=== PATIENT | female | born 1975 | race Native Hawaiian/Other Pacific Islander ===

== ENCOUNTER 2018-03-31 22:35 | Inpatient (IN) | payer BC, MEDICARE ==
[2018-03-31] MEDS ORDERED: ONDANSETRON 4 MG/2 ML VIAL IVP PRN (22:54)
[2018-03-31] MEDS ORDERED: NALOXONE 0.4 MG/ML 1 ML VIAL IV PRN (22:54)
--- NOTE | 2018-03-31 23:02 | ED ---
General Adult HPI - General Chief complaint: Recheck/Abnormal Lab/Rx Stated complaint: renal failure Time Seen by Provider: 03/31/18 22:38 Source: patient, RN notes reviewed, old records reviewed Mode of arrival: EMS Limitations: no limitations - History of Present Illness Initial comments: 42-year-old female presenting as transfer from outside hospital with nausea vomiting and acute renal failure. Patient was found to have a creatinine of 4.2. She was transferred for further evaluation and treatment. Patient states that over the past 5-6 days she has had significant nausea and vomiting. She did develop diarrhea yesterday however this has resolved. Her vomiting had improved today however she was very weak and lightheaded. She had been unable to eat much over the past one week. She states she had similar episode of this several months ago and no definitive diagnosis was made. At the time my evaluation, she is feeling much better. No nausea or vomiting. No pain. - Related Data Home Medications Medication Instructions Recorded Confirmed ALPRAZolam [Xanax] 1 mg PO Q6HR PRN 06/18/14 03/31/18 Levothyroxine Sodium [Synthroid] 125 mcg PO HS 06/18/14 03/31/18 PARoxetine HCL [Paxil] 30 mg PO HS 06/18/14 03/31/18 carBAMazepine [TEGretol] 200 mg PO HS 06/18/14 03/31/18 Glimepiride [Amaryl] 4 mg PO [id number] 03/31/18 03/31/18 Lisinopril [Zestril] 10 mg PO DAILY 03/31/18 03/31/18 Pravastatin Sodium [Pravachol] 10 mg PO DAILY 03/31/18 03/31/18 Allergies Allergy/AdvReac Type Severity Reaction Status Date / Time divalproex sodium Allergy Nausea & Verified 03/31/18 22:41 [From Depakote] Vomiting & Diarrhea pertussis vaccine,fluid Allergy Nausea & Verified 03/31/18 22:41 Vomiting & Diarrhea Review of Systems ROS Statement: Those systems with pertinent positive or pertinent negative responses have been documented in the HPI. ROS Other: All systems not noted in ROS Statement are negative. Past Medical History Past Medical History: Diabetes Mellitus, Hypertension, Thyroid Disorder Additional Past Medical History / Comment(s): PREVIOUSLY ON HTN MEDS, NO LONGER PRESCRIBED ANY, tremors History of Any Multi-Drug Resistant Organisms: MRSA Date of last positivie culture/infection: 2007 MDRO Source:: UNDER ARM AND GROIN Past Surgical History: Tubal Ligation Additional Past Surgical History / Comment(s): I&D MRSA-UNDER ARM AND GROIN Past Anesthesia/Blood Transfusion Reactions: No Reported Reaction Past Psychological History: Anxiety, Bipolar, Depression Smoking Status: Current every day smoker Past Alcohol Use History: Rare Past Drug Use History: Marijuana - Past Family History Mother Family Medical History: Cancer General Exam Limitations: no limitations General appearance: alert, in no apparent distress Head exam: Present: atraumatic, normocephalic Eye exam: Present: normal appearance, PERRL, EOMI ENT exam: Present: mucous membranes dry Neck exam: Present: normal inspection. Absent: tenderness, meningismus Respiratory exam: Present: normal lung sounds bilaterally. Absent: respiratory distress, wheezes Cardiovascular Exam: Present: regular rate, normal rhythm GI/Abdominal exam: Present: soft. Absent: distended, tenderness, guarding, rebound Extremities exam: Present: normal inspection Back exam: Present: normal inspection. Absent: full ROM, tenderness Neurological exam: Present: alert, oriented X3, CN II-XII intact. Absent: motor sensory deficit Psychiatric exam: Present: normal affect, normal mood Skin exam: Present: warm, dry, intact. Absent: cyanosis, diaphoretic Course Vital Signs 03/31/18 22:37 Temperature 97.9 F Pulse Rate 66 Respiratory 20 Rate Blood Pressure 143/84 O2 Sat by Pulse 97 Oximetry Medical Decision Making - Medical Decision Making Patient transferred for evaluation of acute kidney injury secondary dehydration and nausea and vomiting. Patient's feeling much better at the time my evaluation. Laboratory studies reviewed, she did have a normal white blood cell count at 9.8, hemoglobin was stable 13.8, sodium 134, mild anion gap metabolic acidosis at 18, creatinine was 4.2, no history of previous kidney issues. Glucose elevated at 203. AST and ALT were normal, total bili normal, lipase was normal. Patient was given 2 L normal saline. She will be continued on IV hydration. She will be given symptomatic treatment for nausea vomiting. If patient's symptoms persist she may require GI consultation. Likely her acute renal failure is secondary to dehydration. If laboratory studies do not improve with IV hydration, she may require nephrology consult. Patient admitted for continued IV hydration and reevaluation. Disposition Clinical Impression: Acute kidney injury, Dehydration, Nausea & vomiting Disposition: ADMITTED IP TO THIS HOSP Condition: Stable Is patient prescribed a controlled substance at d/c from ED?: No Referrals: Felicia Reynoso MD [Primary Care Provider] - 1-2 days Decision to Admit Reason: Admit from EC Decision Date: 03/31/18 Decision Time: 23:02
[2018-04-01 06:58] LABS: Basophils % (A) 1 %; Eosinophils # (A) 0.1 k/uL (0-0.7); Eosinophils % (A) 2 %; HCT 35.8 % (34.0-46.0); HGB 12.1 gm/dL (11.4-16.0); Lymphocytes % (A) 29 %; MCH 31.5 pg (25.0-35.0); MCHC 33.6 g/dL (31.0-37.0); MCV 93.5 fL (80.0-100.0); Mean Platelet Volume 6.4; Monocytes # (A) 0.5 k/uL (0-1.0); Monocytes % (A) 6 %; Neutrophils # (A) 4.3 k/uL (1.3-7.7); Neutrophils % (A) 60 %; Platelet Count 314 k/uL (150-450); RBC 3.83 m/uL (3.80-5.40); RDW 14.6 % (11.5-15.5); WBC 7.1 k/uL (3.8-10.6)
[2018-04-01 07:01] LABS: Glucose,Whole Blood 83 mg/dL (75-99)
[2018-04-01 07:13] LABS: Albumin 3.7 g/dL (3.5-5.0); Calcium 8.8 mg/dL (8.4-10.2); Potassium 3.7 mmol/L (3.5-5.1); Total Bilirubin 0.4 mg/dL (0.2-1.3); Total Protein 6.3 g/dL (6.3-8.2)
[2018-04-01] MEDS: SODIUM CHLORIDE 0.9% 1,000 ML IV SCH ×3 (07:54→15:23)
[2018-04-01] MEDS: PANTOPRAZOLE 40 MG/10 ML VIAL IV SCH (07:54)
[2018-04-01 11:59] LABS: Glucose,Whole Blood 154 mg/dL (75-99)
[2018-04-01 17:04] LABS: Glucose,Whole Blood 141 mg/dL (75-99)
[2018-04-01 20:48] LABS: Glucose,Whole Blood 172 mg/dL (75-99)
[2018-04-01] MEDS: PARoxetine 10 MG TAB PO SCH (20:57)
[2018-04-01] MEDS: PRAVASTATIN SODIUM 20 MG TAB PO SCH (20:57)
[2018-04-01] MEDS: LEVOTHYROXINE 125 MCG TAB PO SCH (20:57)
[2018-04-01] MEDS: carBAMazepine 200 MG TAB PO SCH (20:58)
[2018-04-01] MEDS: ACETAMINOPHEN TAB 325 MG TAB PO PRN (21:02)
[2018-04-01] MEDS: ALPRAZolam 1 MG TAB PO PRN (21:07)
--- NOTE | 2018-04-01 23:45 | P.HPIM ---
History of Present Illness H&P Date: 04/01/18 Chief Complaint: Nausea and vomiting Patient is a 42-year-old female with a known history of diabetes type 2, hypertension and hypothyroidism presented to outside hospital with complaints of nausea vomiting for the past 1 week. Patient was found to have acute kidney injury with creatinine level IV.2 and was transferred to [facility] for further evaluation. Patient has been having nausea and vomiting" diarrhea yesterday which has since been resolved now. Patient felt very weak and lightheaded. Patient is not able to tolerate oral diet for the past 1 week. Patient had similar symptoms about a month back. Denied any history of endoscopy in the past. Currently patient is still nauseated and denied any abdominal pain. No fever no chills. Lipase 542. urinalysis was ordered. Laboratory data from outside hospital was reviewed. Review of Systems Constitutional: Patient denies any fever or chills . Patient does have generalized weakness and malaise. Abdomen: Patient does have nausea and vomiting and diarrhea. No abdominal pain Cardiovascular: Patient denies any chest pain or short of breath no palpitations. Respiratory: patient denied any cough is from production. No shortness of breath Neurologic: Patient denied any numbness or tingling headache. Musculoskeletal: Patient denies any complaints of joint swelling or deformity. Skin: Negative Psychiatric: Negative Endocrine: No heat or cold intolerance. No recent weight gain. Genitourinary: No dysuria or hematuria. All other 14 point ROS negative except the above Past Medical History Past Medical History: Diabetes Mellitus, Hypertension, Thyroid Disorder Additional Past Medical History / Comment(s): PREVIOUSLY ON HTN MEDS, NO LONGER PRESCRIBED ANY, tremors History of Any Multi-Drug Resistant Organisms: MRSA Date of last positivie culture/infection: 2007 MDRO Source:: UNDER ARM AND GROIN Past Surgical History: Tubal Ligation Additional Past Surgical History / Comment(s): I&D MRSA-UNDER ARM AND GROIN Past Anesthesia/Blood Transfusion Reactions: No Reported Reaction Smoking Status: Current every day smoker - Past Family History Mother Family Medical History: Cancer Additional Family Medical History / Comment(s): breast cancer Father Family Medical History: Diabetes Mellitus, Hypertension Additional Family Medical History / Comment(s): heart valve replaced, tremors Sister(s) Family Medical History: No Reported History Son(s) Family Medical History: No Reported History Medications and Allergies Home Medications Medication Instructions Recorded Confirmed Type ALPRAZolam [Xanax] 1 mg PO Q6HR PRN 06/18/14 04/01/18 History Levothyroxine Sodium [Synthroid] 125 mcg PO HS 06/18/14 04/01/18 History PARoxetine HCL [Paxil] 30 mg PO HS 06/18/14 04/01/18 History carBAMazepine [TEGretol] 100 mg PO HS 06/18/14 04/01/18 History Glimepiride [Amaryl] 4 mg PO HS 03/31/18 04/01/18 History Lisinopril [Zestril] 10 mg PO HS 03/31/18 04/01/18 History Pravastatin Sodium [Pravachol] 40 mg PO HS 04/01/18 04/01/18 History metFORMIN HCL 1,000 mg PO HS 04/01/18 04/01/18 History Allergies Allergy/AdvReac Type Severity Reaction Status Date / Time divalproex sodium AdvReac Nausea & Verified 04/01/18 12:29 [From Depakote] Vomiting & Diarrhea pertussis vaccine,fluid AdvReac Nausea & Verified 04/01/18 12:29 Vomiting & Diarrhea Physical Exam Vitals: Vital Signs Temp Pulse Pulse Pulse Resp BP BP 04/01/18 09:42 97.0 F L 66 16 136/73 04/01/18 08:00 97.7 F 62 16 142/83 04/01/18 04:26 84/50 04/01/18 03:10 18 04/01/18 00:00 97.6 F 70 18 173/87 03/31/18 22:37 97.9 F 66 20 143/84 Pulse Ox 04/01/18 09:42 96 04/01/18 08:00 99 04/01/18 04:26 04/01/18 03:10 04/01/18 00:00 99 03/31/18 22:37 97 Intake and Output 03/31/18 04/01/18 04/01/18 22:59 06:59 14:59 Intake Total 560 Balance 560 Intake: Oral 560 Other: Voiding Method Toilet Toilet Weight 73.482 kg PHYSICAL EXAMINATION: Patient is lying in the bed comfortably, no acute distress, awake alert and oriented. Slightly lethargic. HEENT: Normocephalic. Neck is supple. Pupils reactive. Nostrils clear. Oral cavity is moist. Ears reveal no drainage. Neck reveals no JVD, carotid bruits, or thyromegaly. CHEST EXAMINATION: Trachea is central. Symmetrical expansion. Lung bowman clear to auscultation and percussion. CARDIAC: Normal S1, S2 with no gallops. No murmurs ABDOMEN: Soft. Bowel sounds normal. No organomegaly. No abdominal bruits. Extremities: reveal no edema. No clubbing or cyanosis Neurologically awake, alert, oriented x3 with well-coordinated movements. No focal deficits noted Skin: No rash or skin lesions. Psychiatric: Coperative. Nonsuicidal Musculoskeletal: No joint swelling or deformity. Normal range of motion. Results CBC & Chem 7: 04/01/18 06:29 04/01/18 06:29 Labs: Abnormal Lab Results - Last 24 Hours (Table) 04/01/18 04/01/18 Range/Units 06:29 11:57 BUN 47 H (7-17) mg/dL Creatinine 1.67 H (0.52-1.04) mg/dL POC Glucose (mg/dL) 154 H (75-99) mg/dL AST 13 L (14-36) U/L Lipase 542 H (23-300) U/L Thrombosis Risk Factor Assmnt - DVT/VTE Prophylaxis DVT/VTE Prophylaxis: Pharmacologic Prophylaxis ordered - Choose All That Apply Any of the Below Risk Factors Present?: Yes Each Factor Represents 1 point: Age 41-60 years, Obesity (BMI >25) Other Risk Factors: No Other congenital or acquired thrombophilia - If yes, enter type in comment: No Thrombosis Risk Factor Assessment Total Risk Factor Score: 2 Thrombosis Risk Factor Assessment Level: Low Risk Assessment and Plan Assessment: Intractable nausea and vomiting possible gastritis Mild pancreatitis with elevated lipase level likely due to above Acute kidney injury with creatinine level 4.2. Likely prerenal. Improving to 1.67 Hypertension fairly controlled Diabetes type 2 [id number] Hypothyroidism Currently every day smoker Plan: Patient will be continued aggressive hydration and symptomatic management for nausea and vomiting. Patient will be started on clear liquids and advance as tolerated. Continue with the PPI IV. Follow closely and further recommendations based on the clinical course. Smoking cessation has been counseled extensively. Time with Patient: Greater than 30
[2018-04-02] MEDS: SODIUM CHLORIDE 0.9% 1,000 ML IV SCH ×4 (00:12→13:12)
[2018-04-02 07:22] LABS: Glucose,Whole Blood 97 mg/dL (75-99)
[2018-04-02] MEDS: GLIMEPIRIDE 4 MG TAB PO SCH (07:43)
[2018-04-02] MEDS: PANTOPRAZOLE 40 MG/10 ML VIAL IV SCH (09:05)
[2018-04-02 09:10] LABS: Appearance,Urine Clear (Clear); Bilirubin,Urine Negative (Negative); Blood,Urine Large (Negative); Color,Urine Yellow; Glucose,Urine (UA) Negative (Negative); Hyaline Casts,Urine 1 /lpf (0-2); Ketones,Urine Negative (Negative); Leukocyte Esterase,Urine Negative (Negative); Mucus,Urine Rare /hpf; Nitrite,Urine Negative (Negative); PH, Urine 5.5 (5.0-8.0); Protein,Urine Negative (Negative); RBC,Urine >182 /hpf (0-5); Specific Gravity,Urine 1.013 (1.001-1.035); Squamous Epithelial Cell,Urine 1 /hpf (0-4); Urobilinogen,Urine <2.0 mg/dL (<2.0); WBC,Urine 9 /hpf (0-5)
[2018-04-02 10:08] LABS: Basophils # (A) 0.1 k/uL (0-0.2); Basophils % (A) 1 %; Eosinophils # (A) 0.2 k/uL (0-0.7); Eosinophils % (A) 2 %; HCT 34.3 % (34.0-46.0); HGB 11.2 gm/dL (11.4-16.0); Lymphocytes # (A) 1.6 k/uL (1.0-4.8); Lymphocytes % (A) 14 %; MCH 30.8 pg (25.0-35.0); MCHC 32.6 g/dL (31.0-37.0); MCV 94.3 fL (80.0-100.0); Mean Platelet Volume 6.8; Monocytes # (A) 0.5 k/uL (0-1.0); Monocytes % (A) 4 %; Neutrophils # (A) 8.8 k/uL (1.3-7.7); Neutrophils % (A) 78 %; Platelet Count 299 k/uL (150-450); RBC 3.63 m/uL (3.80-5.40); RDW 13.8 % (11.5-15.5); WBC 11.2 k/uL (3.8-10.6)
[2018-04-02 10:26] LABS: Anion Gap 12 mmol/L; Blood Urea Nitrogen 15 mg/dL (7-17); Calcium 8.4 mg/dL (8.4-10.2); Carbon Dioxide 20 mmol/L (22-30); Chloride 106 mmol/L (98-107); Glucose 250 mg/dL (74-99); Potassium 3.6 mmol/L (3.5-5.1); Sodium 138 mmol/L (137-145)
[2018-04-02 12:04] LABS: Hemoglobin A1C 7.6 % (4.0-6.0)
[2018-04-02 12:07] LABS: Glucose,Whole Blood 188 mg/dL (75-99)
[2018-04-02 14:13] VITALS: BMI 27.8
[2018-04-02 17:19] LABS: Glucose,Whole Blood 144 mg/dL (75-99)
[2018-04-02 21:28] LABS: Glucose,Whole Blood 223 mg/dL (75-99)
[2018-04-02] MEDS: PARoxetine 10 MG TAB PO SCH (21:37)
[2018-04-02] MEDS: carBAMazepine 200 MG TAB PO SCH (21:37)
[2018-04-02] MEDS: ALPRAZolam 1 MG TAB PO PRN (21:37)
[2018-04-02] MEDS: PRAVASTATIN SODIUM 20 MG TAB PO SCH (21:37)
[2018-04-02] MEDS: ACETAMINOPHEN TAB 325 MG TAB PO PRN (21:37)
[2018-04-02] MEDS: LEVOTHYROXINE 125 MCG TAB PO SCH (21:38)
--- NOTE | 2018-04-03 01:17 | P.PN ---
Subjective Progress Note Date: 04/02/18 Principal diagnosis: Acute gastroenteritis Patient is a 42-year-old female with a known history of diabetes type 2, hypertension and hypothyroidism presented to outside hospital with complaints of nausea vomiting for the past 1 week. Patient was found to have acute kidney injury with creatinine level IV.2 and was transferred to [facility] for further evaluation. Patient has been having nausea and vomiting" diarrhea yesterday which has since been resolved now. Patient felt very weak and lightheaded. Patient is not able to tolerate oral diet for the past 1 week. Patient had similar symptoms about a month back. Denied any history of endoscopy in the past. Currently patient is still nauseated and denied any abdominal pain. No fever no chills. Lipase 542. urinalysis was ordered. Laboratory data from outside hospital was reviewed. 04/02/2018 Patient says that she did have 1 episode of diarrhea this morning. No complaints of fever or chills. Patient does have lower abdominal pain with cramps. Still nauseated but tolerating liquid diet. No chest pain or shortness of breath. Renal function improved otherwise. WBC count increased to 11.2 All other review of systems negative except the above Current medications reviewed Objective - Vital Signs Vital signs: Vital Signs Temp 98.5 F 04/02/18 14:17 Pulse 71 04/02/18 14:17 Resp 17 04/02/18 14:17 BP 144/81 04/02/18 14:17 Pulse Ox 100 04/02/18 14:17 Intake & Output 04/02/18 04/02/18 04/03/18 06:59 18:59 06:59 Intake Total 300 1080 Balance 300 1080 Weight 73.482 kg Intake: IV 640 Sodium Chloride 0.9% 1, 640 000 ml @ 80 mls/hr IV . [id number] [facility] Rx#:[id number] Oral 300 440 Other: # Voids 0 # Bowel Movements 0 - Exam PHYSICAL EXAMINATION: Patient is lying in the bed comfortably, no acute distress, awake alert and oriented.. HEENT: Normocephalic. Neck is supple. Pupils reactive. Nostrils clear. Oral cavity is moist. Ears reveal no drainage. Neck reveals no JVD, carotid bruits, or thyromegaly. CHEST EXAMINATION: Trachea is central. Symmetrical expansion. Lung bowman clear to auscultation and percussion. CARDIAC: Normal S1, S2 with no gallops. No murmurs ABDOMEN: Soft. Bowel sounds normal. No organomegaly. No abdominal bruits. Extremities: reveal no edema. No clubbing or cyanosis Neurologically awake, alert, oriented x3 with well-coordinated movements. No focal deficits noted Skin: No rash or skin lesions. Psychiatric: Coperative. Nonsuicidal Musculoskeletal: No joint swelling or deformity. Normal range of motion. - Labs CBC & Chem 7: 04/02/18 09:52 04/02/18 09:52 Labs: Abnormal Lab Results - Last 24 Hours (Table) 04/01/18 04/02/18 04/02/18 Range/Units 06:29 07:30 09:52 WBC 11.2 H (3.8-10.6) k/uL RBC 3.63 L (3.80-5.40) m/uL Hgb 11.2 L (11.4-16.0) gm/dL Neutrophils # 8.8 H (1.3-7.7) k/uL Carbon Dioxide (22-30) mmol/L Glucose (74-99) mg/dL POC Glucose (mg/dL) (75-99) mg/dL Hemoglobin A1c 7.6 H (4.0-6.0) % Urine Blood Large H (Negative) Urine RBC >182 H (0-5) /hpf Urine WBC 9 H (0-5) /hpf Urine Mucus Rare H (None) /hpf 04/02/18 04/02/18 04/02/18 Range/Units 09:52 12:02 17:12 WBC (3.8-10.6) k/uL RBC (3.80-5.40) m/uL Hgb (11.4-16.0) gm/dL Neutrophils # (1.3-7.7) k/uL Carbon Dioxide 20 L (22-30) mmol/L Glucose 250 H (74-99) mg/dL POC Glucose (mg/dL) 188 H 144 H (75-99) mg/dL Hemoglobin A1c (4.0-6.0) % Urine Blood (Negative) Urine RBC (0-5) /hpf Urine WBC (0-5) /hpf Urine Mucus (None) /hpf 04/02/18 Range/Units 21:26 WBC (3.8-10.6) k/uL RBC (3.80-5.40) m/uL Hgb (11.4-16.0) gm/dL Neutrophils # (1.3-7.7) k/uL Carbon Dioxide (22-30) mmol/L Glucose (74-99) mg/dL POC Glucose (mg/dL) 223 H (75-99) mg/dL Hemoglobin A1c (4.0-6.0) % Urine Blood (Negative) Urine RBC (0-5) /hpf Urine WBC (0-5) /hpf Urine Mucus (None) /hpf Assessment and Plan Assessment: Intractable nausea and vomiting with diarrhea possible gastroenteritis Mild pancreatitis with elevated lipase level likely due to above Acute kidney injury with creatinine level 4.2. Likely prerenal. Improving to 1.67 Hypertension fairly controlled Diabetes type 2 [id number] Hypothyroidism Currently every day smoker Plan: Patient will be continued aggressive hydration and symptomatic management for nausea and vomiting. Patient will be started on clear liquids and advance as tolerated. Continue with the PPI IV. Follow closely and further recommendations based on the clinical course. Smoking cessation has been counseled extensively. Anticipate discharge tomorrow with minimal clinical improvement Time with Patient: Greater than 30
[2018-04-03] MEDS: SODIUM CHLORIDE 0.9% 1,000 ML IV SCH ×3 (03:15→18:40)
[2018-04-03] MEDS: PANTOPRAZOLE 40 MG/10 ML VIAL IV SCH (07:43)
[2018-04-03] MEDS: GLIMEPIRIDE 4 MG TAB PO SCH (07:43)
[2018-04-03 07:45] LABS: Glucose,Whole Blood 113 mg/dL (75-99)
[2018-04-03 12:43] LABS: Glucose,Whole Blood 121 mg/dL (75-99)
[2018-04-03 17:21] LABS: Glucose,Whole Blood 164 mg/dL (75-99)
[2018-04-03] MEDS: ACETAMINOPHEN TAB 325 MG TAB PO PRN (17:39)
[2018-04-03] MEDS ORDERED: SENNOSIDES-DOCUSATE SODIUM 1 EACH TAB PO PRN (17:41)
[2018-04-03] MEDS ORDERED: DOCUSATE 100 MG CAP PO PRN (17:44)
[2018-04-03] MEDS: ALPRAZolam 1 MG TAB PO PRN (18:35)
--- NOTE | 2018-04-03 18:44 | P.PN ---
Subjective Patient is a 42-year-old female with a known history of diabetes type 2, hypertension and hypothyroidism presented to outside hospital with complaints of nausea vomiting for the past 1 week. Patient was found to have acute kidney injury with creatinine level IV.2 and was transferred to [facility] for further evaluation. Patient has been having nausea and vomiting" diarrhea yesterday which has since been resolved now. Patient felt very weak and lightheaded. Patient is not able to tolerate oral diet for the past 1 week. Patient had similar symptoms about a month back. Denied any history of endoscopy in the past. Currently patient is still nauseated and denied any abdominal pain. No fever no chills. Lipase 542. urinalysis was ordered. 04/02/2018 Patient says that she did have 1 episode of diarrhea this morning. No complaints of fever or chills. Patient does have lower abdominal pain with cramps. Still nauseated but tolerating liquid diet. No chest pain or shortness of breath. Renal function improved otherwise. WBC count increased to 11.2 04/03/2018 Patient stating that her symptoms of diarrhea or abdominal pain nausea vomiting are improving, however patient remains dehydrated and needs IV fluids Objective - Vital Signs Vital signs: Vital Signs Temp 98.9 F 04/03/18 15:00 Pulse 66 04/03/18 15:00 Resp 22 04/03/18 15:00 BP 145/79 04/03/18 15:00 Pulse Ox 99 04/03/18 15:00 Intake & Output 04/02/18 04/03/18 04/03/18 18:59 06:59 18:59 Intake Total 1080 575 200 Balance 1080 575 200 Weight 73.482 kg Intake: IV 640 Sodium Chloride 0.9% 1, 640 000 ml @ 80 mls/hr IV . [id number] [facility] Rx#:[id number] Oral 440 575 200 Other: Voiding Method Toilet Toilet # Voids 0 2 # Bowel Movements 0 - Exam GENERAL: The patient is alert and oriented x3, not in any acute distress. Well developed, well nourished. HEENT: Pupils are round and equally reacting to light. EOMI. No scleral icterus. No conjunctival pallor. Normocephalic, atraumatic. No pharyngeal erythema. No thyromegaly. CARDIOVASCULAR: S1 and S2 present. No murmurs, rubs, or gallops. PULMONARY: Chest is clear to auscultation, no wheezing or crackles. ABDOMEN: Soft, nontender, nondistended, normoactive bowel sounds. No palpable organomegaly. MUSCULOSKELETAL: No joint swelling or deformity. EXTREMITIES: No cyanosis, clubbing, or pedal edema. NEUROLOGICAL: Gross neurological examination did not reveal any focal deficits. SKIN: No rashes. - Labs CBC & Chem 7: 04/02/18 09:52 04/02/18 09:52 Labs: Abnormal Lab Results - Last 24 Hours (Table) 04/02/18 04/03/18 04/03/18 Range/Units 21:26 07:15 12:28 POC Glucose (mg/dL) 223 H 113 H 121 H (75-99) mg/dL 04/03/18 Range/Units 17:19 POC Glucose (mg/dL) 164 H (75-99) mg/dL Assessment and Plan Plan: Intractable nausea and vomiting with diarrhea possible gastroenteritis Mild pancreatitis with elevated lipase level likely due to above Acute kidney injury with creatinine level 4.2. Likely prerenal. Improving to 1.67 Hypertension fairly controlled Diabetes type 2 [id number] Hypothyroidism Currently every day smoker Dehydration Plan: Patient will be continued aggressive hydration and symptomatic management for nausea and vomiting. Patient diet is advanced and tolerated. Continue with the PPI IV. Follow closely and further recommendations based on the clinical course. Continue with IV fluids Smoking cessation has been counseled extensively. Anticipate discharge in 24
[2018-04-03 20:27] LABS: Glucose,Whole Blood 144 mg/dL (75-99)
[2018-04-03] MEDS: PARoxetine 10 MG TAB PO SCH (20:36)
[2018-04-03] MEDS: LEVOTHYROXINE 125 MCG TAB PO SCH (20:36)
[2018-04-03] MEDS: carBAMazepine 200 MG TAB PO SCH (20:37)
[2018-04-03] MEDS: PRAVASTATIN SODIUM 20 MG TAB PO SCH (21:58)
[2018-04-04] MEDS: HEPARIN SODIUM,PORCINE 5,000 UNIT/ML 1 ML VIAL SQ SCH ×2 (00:15→10:50)
[2018-04-04 07:22] LABS: Glucose,Whole Blood 128 mg/dL (75-99)
[2018-04-04 08:25] LABS: Basophils % (A) 1 %; Eosinophils # (A) 0.3 k/uL (0-0.7); Eosinophils % (A) 5 %; HCT 32.6 % (34.0-46.0); HGB 10.7 gm/dL (11.4-16.0); Lymphocytes # (A) 2.2 k/uL (1.0-4.8); Lymphocytes % (A) 34 %; MCH 30.5 pg (25.0-35.0); MCHC 32.8 g/dL (31.0-37.0); MCV 92.8 fL (80.0-100.0); Mean Platelet Volume 6.9; Monocytes # (A) 0.4 k/uL (0-1.0); Monocytes % (A) 6 %; Neutrophils # (A) 3.4 k/uL (1.3-7.7); Neutrophils % (A) 54 %; Platelet Count 323 k/uL (150-450); RBC 3.52 m/uL (3.80-5.40); RDW 13.8 % (11.5-15.5); WBC 6.4 k/uL (3.8-10.6)
[2018-04-04] MEDS ORDERED: PANTOPRAZOLE 40 MG TABLET PO SCH (09:00)
[2018-04-04 09:45] LABS: Anion Gap 7 mmol/L; Blood Urea Nitrogen 7 mg/dL (7-17); Calcium 8.1 mg/dL (8.4-10.2); Carbon Dioxide 29 mmol/L (22-30); Chloride 103 mmol/L (98-107); Glucose 129 mg/dL (74-99); Sodium 139 mmol/L (137-145)
[2018-04-04] MEDS: SODIUM CHLORIDE 0.9% 1,000 ML IV SCH (10:50)
[2018-04-04] MEDS: GLIMEPIRIDE 4 MG TAB PO SCH (10:50)
[2018-04-04 12:04] LABS: Glucose,Whole Blood 153 mg/dL (75-99)
[2018-04-04 13:25] LABS: Appearance,Urine Clear (Clear); Bacteria,Urine Rare /hpf; Bilirubin,Urine Negative (Negative); Blood,Urine Large (Negative); Color,Urine Light Yellow; Glucose,Urine (UA) 1+ (Negative); Ketones,Urine Negative (Negative); Leukocyte Esterase,Urine Negative (Negative); Mucus,Urine Rare /hpf; Nitrite,Urine Negative (Negative); Protein,Urine Negative (Negative); RBC,Urine <1 /hpf (0-5); Specific Gravity,Urine 1.009 (1.001-1.035); Squamous Epithelial Cell,Urine 2 /hpf (0-4); Urobilinogen,Urine <2.0 mg/dL (<2.0); WBC,Urine 2 /hpf (0-5)
[2018-04-04 15:34] VITALS: BP 139/75; TEMP 98.5
[2018-04-04 17:22] LABS: Glucose,Whole Blood 165 mg/dL (75-99)
--- NOTE | 2018-04-04 18:41 | P.DS ---
Providers Date of admission: 04/01/18 07:48 Attending physician: Petey Dee Primary care physician: Felicia Reynoso MD Hospital Course: Patient is a 42-year-old female with a known history of diabetes type 2, hypertension and hypothyroidism presented to outside hospital with complaints of nausea vomiting for the past 1 week. Patient was found to have acute kidney injury with creatinine level 1.6 and was transferred to [facility] for further evaluation. Patient has been having nausea and vomiting" diarrhea one day prior which has since been resolved now. Patient felt very weak and lightheaded. Patient is not able to tolerate oral diet for the past 1 week. Patient had similar symptoms about a month back. pt denied any abdominal pain. No fever no chills. Patient was treated with IV fluids and symptomatic treatment. Patient showed interval improvement and on the day of discharge patient came back to her normal state. She denies any more nausea vomiting, no abdominal pain, no more diarrhea or change in bowel habits. Patient felt she is ready to go home. Diet was tolerated. Patient is mobile at her baseline. Line patient was noticed to have blood in her urine. However patient states that she has menstrual period while she was in the hospital. Repeated urinalysis yesterday which shows urine blood still large however the urine RBCs which were more than 182 came back to less than 1. Patient on the day of discharge states that she still have menstrual period and that she cannot give a urine sample without been mixed from of blood coming from the genital orifice. Patient confirmed to me that she states whenever she takes a urine sample she sees blood coming from the genital orifice next with the urine i.e. mesh old blood mixed with urine. Patient however denies any other urinary symptoms for example there is no urgency no hesitancy, no dysuria and no change in the frequency. I offered for the patient to keep her one more night for monitoring and recheck her urine make sure its cleared however patient refuses and states that she will follow up with her PCP I offered to make an appointment for the patient with PCP however patient declined stating that she will make it by herself, alternatively I instructed the patient to follow-up with her PCP and to call and make an appointment within 1 week and she verbalized understanding and acceptance. Also the urologist contact information is provided for the patient for outpatient setting. Patient agrees for me to speak with her PCP Prescription is provided for the patient for repeat UA on patient request to take it to her PCP Prescription cavanaugh patient only wanted thyroxine and Protonix prescription. Patient states that she had other medications and home as she recently saw her PCP few weeks ago for similar problem of nausea and vomiting Patient was found stable and can be discharged home however she needs follow-up as an outpatient Discharge exam GENERAL: The patient is alert and oriented x3, not in any acute distress. Well developed, well nourished. HEENT: Pupils are round and equally reacting to light. EOMI. No scleral icterus. No conjunctival pallor. Normocephalic, atraumatic. No pharyngeal erythema. No thyromegaly. CARDIOVASCULAR: S1 and S2 present. No murmurs, rubs, or gallops. PULMONARY: Chest is clear to auscultation, no wheezing or crackles. ABDOMEN: Soft, nontender, nondistended, normoactive bowel sounds. No palpable organomegaly. EXTREMITIES: No cyanosis, clubbing, or pedal edema. SKIN: No rashes. Time spent more than 35 minutes Patient Condition at Discharge: Stable Plan - Discharge Summary Discharge Rx Participant: No New Discharge Prescriptions: Continue ALPRAZolam [Xanax] 1 mg PO Q6HR PRN PRN Reason: Anxiety PARoxetine HCL [Paxil] 30 mg PO HS carBAMazepine [TEGretol] 100 mg PO HS Levothyroxine Sodium [Synthroid] 125 mcg PO HS Glimepiride [Amaryl] 4 mg PO HS Lisinopril [Zestril] 10 mg PO HS metFORMIN HCL 1,000 mg PO HS Pravastatin Sodium [Pravachol] 40 mg PO HS Discharge Medication List ALPRAZolam [Xanax] 1 mg PO Q6HR PRN 06/18/14 [History] Levothyroxine Sodium [Synthroid] 125 mcg PO HS 06/18/14 [History] PARoxetine HCL [Paxil] 30 mg PO HS 06/18/14 [History] carBAMazepine [TEGretol] 100 mg PO HS 06/18/14 [History] Glimepiride [Amaryl] 4 mg PO HS 03/31/18 [History] Lisinopril [Zestril] 10 mg PO HS 03/31/18 [History] Pravastatin Sodium [Pravachol] 40 mg PO HS 04/01/18 [History] metFORMIN HCL 1,000 mg PO HS 04/01/18 [History] Follow up Appointment(s)/Referral(s): Felicia Reynoso MD [Primary Care Provider] - 1-2 days Activity/Diet/Wound Care/Special Instructions: Resume previous diet Activity as tolerated Discharge Disposition: HOME SELF-CARE
[2018-04-04 21:23] VITALS: PULSE 69; RESP 15
--- NOTE | 2018-04-13 12:02 | P.EN ---
I spoke with kavitha Ledezma on 04/13/18 about the pt and discussed the case with her including her problem of blood in urine with my recommendation to repeat her UA and follow up on the problem and she kindly took note of this
== END 2018-04-04 18:55 | disposition home or self-care (01) | DRG 439 ==
LOC: SUPCPDRO 22:35 → EC 22:35 → 3OBS 23:02 → OBSVTOIN 04-01 07:48 → 4MS4W 04-01 09:32
PROVIDERS: ADMIT Hospitalist; ATTEND Hospitalist
DX: K85.90 Acute pancreatitis without necrosis or infection, unspecified (principal); E87.2 Acidosis; N17.9 Acute kidney failure, unspecified; E86.0 Dehydration; E11.9 Type 2 diabetes mellitus without complications; E03.9 Hypothyroidism, unspecified; F17.200 Nicotine dependence, unspecified, uncomplicated; I10 Essential (primary) hypertension; K52.9 Noninfective gastroenteritis and colitis, unspecified; Z80.3 Family history of malignant neoplasm of breast; Z82.49 Family history of ischemic heart disease and other diseases of the circulatory system; Z83.3 Family history of diabetes mellitus; Z79.890 Hormone replacement therapy; Z79.84 Long term (current) use of oral hypoglycemic drugs; Z79.899 Other long term (current) drug therapy; Z86.14 Personal history of Methicillin resistant Staphylococcus aureus infection
CPT/HCPCS: 80048; 80053; 81001; 82150; 83036; 83690; 83735; 85025; 99285